=== PATIENT | male | born 1945 | race Caucasian/White ===

== ENCOUNTER 2017-12-30 15:23 | Emergency (ER) | payer OTHER ==
[2017-12-30] MEDS ORDERED: SOD CHLORIDE 0.9% 1,000 ML IV (17:00)
[2017-12-30] MEDS ORDERED: ONDANSETRON 4 MG INJ IV (17:00)
[2017-12-30] MEDS ORDERED: morphine 2 MG INJ IV (17:00)
[2017-12-30 17:12] LABS: ADD MAN DIFF? NO
[2017-12-30 17:14] LABS: BASOPHILS % 0.3 % (0.0-2.0); EOSINOPHILS % 0.5 % (0.0-7.0); HEMATOCRIT 43.7 % (42.0-52.0); HEMOGLOBIN 14.6 g/dl (14.0-18.0); LYMPHOCYTES # 1.5 10^3/ul (0.8-2.9); LYMPHOCYTES % 23.2 % (15.0-51.0); MEAN CORPUSCULAR HEMOGLOBIN 28.3 pg (29.0-33.0); MEAN CORPUSCULAR HGB CONC 33.4 g/dl (32.0-37.0); MEAN CORPUSCULAR VOLUME 84.7 fl (82.0-101.0); MEAN PLATELET VOLUME 10.6 fl (7.4-10.4); MONOCYTE # 0.3 10^3/ul (0.3-0.9); MONOCYTES % 4.4 % (0.0-11.0); NEUTROPHIL # 4.5 10^3/ul (1.6-7.5); NEUTROPHILS % 71.3 % (39.0-77.0); PLATELET COUNT 283 10^3/UL (140-415); RED BLOOD COUNT 5.16 10^6/ul (4.70-6.10); RED CELL DISTRIBUTION WIDTH 14.2 % (11.5-14.5)
[2017-12-30 17:14] LABS: WHITE BLOOD COUNT 6.3 10^3/ul (4.8-10.8)
[2017-12-30 17:33] LABS: ANION GAP 16 (8-16); BLOOD UREA NITROGEN 10 mg/dl (7-20); CALCIUM 9.2 mg/dl (8.4-10.2); CARBON DIOXIDE 24 mmol/L (21-31); CHLORIDE 103 mmol/L (97-110); GLUCOSE 172 mg/dl (70-220); POTASSIUM 3.9 mmol/L (3.5-5.1); SODIUM 139 mmol/L (135-144)
[2017-12-30 17:34] LABS: INR 0.87; PROTIME 11.9 Sec (11.9-14.9); PT RATIO 0.9
[2017-12-30 17:43] LABS: ADD UMIC YES; UR ASCORBIC ACID NEGATIVE (NEGATIVE); UR BILIRUBIN (Dip) NEGATIVE (NEGATIVE); UR BLOOD (Dip) NEGATIVE (NEGATIVE); UR CLARITY CLEAR (CLEAR); UR COLOR YELLOW (YELLOW); UR GLUCOSE (Dip) 2+ mg/dL (NEGATIVE); UR KETONES (Dip) 1+ mg/dL (NEGATIVE); UR LEUKOCYTE ESTERASE (Dip) NEGATIVE Leu/ul (NEGATIVE); UR NITRITE (Dip) NEGATIVE (NEGATIVE); UR RBC 0 /HPF (0-5); UR TOTAL PROTEIN (Dip) 2+ mg/dl (NEGATIVE); UR UROBILINOGEN (Dip) NEGATIVE (NEGATIVE); UR WBC 1 /HPF (0-5)
[2017-12-30 17:45] LABS: TROPONIN-I < 0.010 ng/ml (0.000-0.120)
[2017-12-30 19:46] LABS: LIPASE 110 U/L (23-300)
[2017-12-30] MEDS: FAMOTIDINE 20 MG TAB PO (19:54)
[2017-12-30 19:56] LABS: ALANINE AMINOTRANSFERASE 65 IU/L (13-69); ALBUMIN/GLOBULIN RATIO 1.42; ALKALINE PHOSPHATASE 91 IU/L (42-121); ANION GAP 14 (8-16); ASPARTATE AMINO TRANSFERASE 55 IU/L (15-46); BILIRUBIN,INDIRECT 0.3 mg/dl (0-1.1); BILIRUBIN,TOTAL 0.3 mg/dl (0.2-1.3); BLOOD UREA NITROGEN 10 mg/dl (7-20); CALCIUM 8.9 mg/dl (8.4-10.2); CARBON DIOXIDE 24 mmol/L (21-31); CHLORIDE 104 mmol/L (97-110); CREATININE 0.51 mg/dl (0.61-1.24); GLUCOSE 204 mg/dl (70-220); POTASSIUM 3.9 mmol/L (3.5-5.1); SODIUM 138 mmol/L (135-144); TOTAL PROTEIN 6.8 g/dl (6.1-8.1)
== END 2017-12-30 21:55 | disposition home or self-care (01) ==
LOC: E/R 15:23
DX: R42 Dizziness and giddiness (principal); J45.909 Unspecified asthma, uncomplicated; I10 Essential (primary) hypertension; E11.9 Type 2 diabetes mellitus without complications; R55 Syncope and collapse; Z79.4 Long term (current) use of insulin; Z79.82 Long term (current) use of aspirin
CPT/HCPCS: 36415; 70450; 71045; 74176; 80048; 80053; 81001; 82962; 83690; 84484; 85025; 85610; 93005; 99285-25

== ENCOUNTER 2018-03-15 08:21 | Day surgery (SDC) | payer OTHER ==
[2018-03-15] MEDS ORDERED: PROPOFOL 20 ML (09:49)
[2018-03-15] MEDS ORDERED: MIDAZOLAM 1 MG/ML 2 ML INJ (09:49)
[2018-03-15] MEDS ORDERED: LIDOCAINE 2% (SDV) 5 ML INJ (09:49)
[2018-03-15] MEDS ORDERED: FENTAnyl 50 MCG/ML VIAL (09:49)
== END 2018-03-15 11:18 | disposition home or self-care (01) ==
LOC: GIL 08:21
DX: R19.4 Change in bowel habit (principal); K29.30 Chronic superficial gastritis without bleeding; D12.6 Benign neoplasm of colon, unspecified; K21.9 Gastro-esophageal reflux disease without esophagitis; I10 Essential (primary) hypertension; E11.9 Type 2 diabetes mellitus without complications; J45.909 Unspecified asthma, uncomplicated
CPT/HCPCS: 43239; 82962; 88305; 88312

== ENCOUNTER 2018-05-21 11:22 | Inpatient (IN) | payer OTHER ==
[2018-05-21 12:39] LABS: ADD MAN DIFF? NO
[2018-05-21 12:49] LABS: URINE BLOOD (Dip) POC Negative (NEGATIVE); URINE GLUCOSE (Dip) POC >=1.0% (NEGATIVE); URINE KETONES (Dip) POC 1+ (NEGATIVE); URINE LEUKOCYTE EST (Dip) POC Negative (NEGATIVE); URINE NITRITE (Dip) POC Negative (NEGATIVE); URINE TOTAL PROTEIN POC 1+ (NEGATIVE)
[2018-05-21 12:51] LABS: BASOPHILS % 0.4 % (0.0-2.0); EOSINOPHILS % 0.5 % (0.0-7.0); HEMATOCRIT 45.2 % (42.0-52.0); HEMOGLOBIN 14.9 g/dl (14.0-18.0); LYMPHOCYTES # 0.8 10^3/ul (0.8-2.9); LYMPHOCYTES % 11.3 % (15.0-51.0); MEAN CORPUSCULAR HEMOGLOBIN 28.2 pg (29.0-33.0); MEAN CORPUSCULAR VOLUME 85.4 fl (82.0-101.0); MEAN PLATELET VOLUME 10.9 fl (7.4-10.4); MONOCYTE # 0.5 10^3/ul (0.3-0.9); MONOCYTES % 6.5 % (0.0-11.0); PLATELET COUNT 223 10^3/UL (140-415); RED BLOOD COUNT 5.29 10^6/ul (4.70-6.10); RED CELL DISTRIBUTION WIDTH 13.8 % (11.5-14.5)
[2018-05-21 12:51] LABS: WHITE BLOOD COUNT 7.4 10^3/ul (4.8-10.8)
[2018-05-21] MEDS: ACETAMINOPHEN 325 MG TAB PO (12:54)
[2018-05-21] MEDS: SODIUM CHLORIDE 0.9% 1L BAG IV* ×2 (12:55→13:59)
[2018-05-21 13:12] LABS: INR 0.96; PARTIAL THROMBOPLASTIN TIME 33.7 Sec (23.0-35.0); PROTIME 12.9 Sec (11.9-14.9)
[2018-05-21 13:15] LABS: ALANINE AMINOTRANSFERASE 47 IU/L (13-69); ALBUMIN/GLOBULIN RATIO 1.37; ALKALINE PHOSPHATASE 106 IU/L (42-121); ANION GAP 17 (5-13); ASPARTATE AMINO TRANSFERASE 46 IU/L (15-46); BILIRUBIN,INDIRECT 0.5 mg/dl (0-1.1); BILIRUBIN,TOTAL 0.5 mg/dl (0.2-1.3); BLOOD UREA NITROGEN 9 mg/dl (7-20); CALCIUM 8.5 mg/dl (8.4-10.2); CARBON DIOXIDE 19 mmol/L (21-31); CHLORIDE 104 mmol/L (97-110); CREATININE 0.51 mg/dl (0.61-1.24); Estimated GFR > 60 mL/min (>60); GLUCOSE 238 mg/dl (70-220); POTASSIUM 3.8 mmol/L (3.5-5.1); SODIUM 140 mmol/L (135-144); TOTAL PROTEIN 6.9 g/dl (6.1-8.1)
[2018-05-21 13:26] LABS: B-TYPE NATRIURETIC PEPTIDE 27 PG/ML (0-125); TROPONIN-I < 0.012 ng/ml (0.000-0.120)
[2018-05-21 13:34] LABS: OCCULT BLOOD STOOL NEGATIVE (NEGATIVE)
[2018-05-21] MEDS: PIPER-TAZO 3.375 GM IV (PMX) 100 ML IVPB ×2 (13:56→22:05)
[2018-05-21] MEDS: SOD CHLORIDE 0.9% 100 ML (14:53)
[2018-05-21] MEDS: IOHEXOL 100 ML (14:53)
[2018-05-21 14:55] LABS: C-REACTIVE PROTEIN 7.5 mg/dl (0.0-0.9)
[2018-05-21] MEDS ORDERED: ALBUTEROL 0.083% (NEB) 2.5 MG/3 ML AMP HHN (15:00)
[2018-05-21] MEDS ORDERED: ACETAMINOPHEN 325 MG TAB PO (15:00)
[2018-05-21] MEDS ORDERED: HYDROCODONE/APAP (5/325) TAB PO (15:00)
[2018-05-21] MEDS ORDERED: ONDANSETRON 4 MG INJ IV (15:00)
[2018-05-21] MEDS ORDERED: VANCOMYCIN IV PER PHARMACY XX (15:00)
[2018-05-21] MEDS ORDERED: NACL 0.9% 3 ML SYG IV (15:00)
[2018-05-21] MEDS ORDERED: hydrALAzine 20 MG INJ IV (15:30)
[2018-05-21 15:45] LABS: FREE T4 (FREE THYROXINE) 0.99 ng/dl (0.78-2.44)
[2018-05-21 15:51] LABS: ACETONE NEGATIVE (NEGATIVE)
[2018-05-21 15:53] LABS: ERYTHROCYTE SEDIMENTATION RATE 6 mm/Hr (0-20)
[2018-05-21 16:12] LABS: PROSTATE SPECIFIC ANTIGEN 0.6 ng/ml (0.0-4.0)
[2018-05-21] MEDS ORDERED: GLUCOSE GEL 15 GRAM TUBE BUCCAL (16:30)
[2018-05-21] MEDS ORDERED: DEXTROSE 50% 50 ML SYRINGE IV ×2 (16:30)
[2018-05-21] MEDS ORDERED: GLUCAGON 1 MG INJ IM (16:30)
[2018-05-21] MEDS ORDERED: GLUCOSE GEL 15 GRAM TUBE PO ×2 (16:30)
[2018-05-21] MEDS: PANTOPRAZOLE 40 MG INJ IV (18:02)
[2018-05-21] MEDS: VANCOMYCIN 2 GM in SOD CHLORIDE 0.9% 500 ML IVPB (18:03)
[2018-05-21 18:08] LABS: LACTIC ACID 2.4 mmol/L (0.5-2.0)
[2018-05-21] MEDS: INSULIN ASPART [NOVOLOG] 3 ML PEN SC ×3 (18:18→21:59)
[2018-05-21] MEDS: GABAPENTIN 300 MG CAP PO (21:50)
[2018-05-21] MEDS: ATORVASTATIN 20 MG TAB PO (21:50)
[2018-05-21] MEDS: INSULIN GLARGINE [LANTus] (100 UNITS/ML) SYG SC (22:00)
[2018-05-21] MEDS: SOD CHLORIDE 0.9% 1,000 ML IV (22:05)
[2018-05-22] MEDS: PIPER-TAZO 3.375 GM IV (PMX) 100 ML IVPB ×4 (00:32→17:52)
[2018-05-22] MEDS: SOD CHLORIDE 0.9% 1,000 ML IV ×3 (00:34→20:20)
[2018-05-22] MEDS: PANTOPRAZOLE 40 MG INJ IV ×2 (05:42→17:52)
[2018-05-22] MEDS: LEVOTHYROXINE 100 MCG TAB PO (06:22)
[2018-05-22 06:39] LABS: WHITE BLOOD COUNT 5.4 10^3/ul (4.8-10.8)
[2018-05-22 06:39] LABS: HEMATOCRIT 40.7 % (42.0-52.0); HEMOGLOBIN 13.1 g/dl (14.0-18.0); MEAN CORPUSCULAR HEMOGLOBIN 27.9 pg (29.0-33.0); MEAN CORPUSCULAR HGB CONC 32.2 g/dl (32.0-37.0); MEAN CORPUSCULAR VOLUME 86.6 fl (82.0-101.0); PLATELET COUNT 200 10^3/UL (140-415); POSITIVE DIFF @See below; RED CELL DISTRIBUTION WIDTH 13.9 % (11.5-14.5)
[2018-05-22 06:43] LABS: ADD MAN DIFF? YES
[2018-05-22 06:58] LABS: MAGNESIUM 1.6 mg/dl (1.7-2.5)
[2018-05-22 06:58] LABS: LACTIC ACID 1.2 mmol/L (0.5-2.0)
[2018-05-22 07:33] LABS: CHOLESTEROL 70 mg/dl (100-200)
[2018-05-22 07:33] LABS: HDL CHOLESTEROL 23 mg/dl (31-75); LDL CHOLESTEROL,CALCULATED 26 mg/dl; TRIGLYCERIDES 104 mg/dl (0-149)
[2018-05-22 07:44] LABS: ALANINE AMINOTRANSFERASE 44 IU/L (13-69); ALBUMIN 3.2 g/dl (3.3-4.9); ALBUMIN/GLOBULIN RATIO 1.28; ALKALINE PHOSPHATASE 70 IU/L (42-121); ANION GAP 10 (5-13); ASPARTATE AMINO TRANSFERASE 26 IU/L (15-46); BILIRUBIN,INDIRECT 0.6 mg/dl (0-1.1); BILIRUBIN,TOTAL 0.6 mg/dl (0.2-1.3); BLOOD UREA NITROGEN 8 mg/dl (7-20); CALCIUM 7.9 mg/dl (8.4-10.2); CARBON DIOXIDE 23 mmol/L (21-31); CHLORIDE 107 mmol/L (97-110); CREATININE 0.68 mg/dl (0.61-1.24); Estimated GFR > 60 mL/min (>60); GLUCOSE 156 mg/dl (70-220); POTASSIUM 3.2 mmol/L (3.5-5.1); SODIUM 140 mmol/L (135-144); TOTAL PROTEIN 5.7 g/dl (6.1-8.1)
[2018-05-22] MEDS: GABAPENTIN 300 MG CAP PO ×3 (08:24→20:21)
[2018-05-22] MEDS: FLUTICASONE 0.05% 16 GM NAS SPRAY NASAL (08:24)
[2018-05-22 08:29] LABS: ANISOCYTOSIS 2+ (0-0); BAND NEUTROPHILS #M 1.7 10^3/ul (0.0-0.6); BAND NEUTROPHILS % (M) 33 % (0-4); BASOPHILS % (M) 1 % (0-2); BURR CELLS 1+ (0-0); EOSINOPHILS % (M) 1 % (0-7); LYMPHOCYTES #M 0.5 10^3/ul (0.8-2.9); LYMPHOCYTES % (M) 11 % (15-51); MICROCYTOSIS 2+ (0-0); MONOCYTE #M 0.3 10^3/ul (0.3-0.9); MONOCYTES % (M) 6 % (0-11); PLATELET ESTIMATE NORMAL; POIKILOCYTOSIS 2+ (0-0); POLYCHROMASIA 1+ (0-0); REACTIVE LYMPHOCYTES #M 0.2 10^3/ul (0.0-0.0); REACTIVE LYMPHOCYTES% (M) 5 % (0-0); SEG NEUT #M 2.4 10^3/ul (1.6-7.5); SEGMENTED NEUTROPHILS (M) % 43 % (39-77); TARGET CELLS 1+ (0-0)
[2018-05-22] MEDS: ENOXAPARIN 40 MG/0.4 ML SYG SC (08:39)
[2018-05-22] MEDS: INSULIN ASPART [NOVOLOG] 3 ML PEN SC ×7 (08:39→20:22)
[2018-05-22] MEDS: VANCOMYCIN 1.25 GM in SOD CHLORIDE 0.9% 250 ML IVPB (09:36)
[2018-05-22] MEDS: ASPIRIN (EC) 81 MG TAB PO (09:37)
[2018-05-22] MEDS: MAGNESIUM SULFATE 2 GM/50 ML 50 ML IVPB (12:13)
[2018-05-22] MEDS: POTASSIUM CHLORIDE (SR) 20 MEQ TAB PO (12:13)
[2018-05-22] MEDS: VANCOMYCIN 1 GM 250 ML IVPB (20:20)
[2018-05-22] MEDS: ATORVASTATIN 20 MG TAB PO (20:20)
[2018-05-22] MEDS: INSULIN GLARGINE [LANTus] (100 UNITS/ML) SYG SC (21:48)
[2018-05-23] MEDS: ZOLPIDEM 5 MG TAB PO (00:11)
[2018-05-23] MEDS: PIPER-TAZO 3.375 GM IV (PMX) 100 ML IVPB ×3 (00:11→12:41)
[2018-05-23] MEDS: SOD CHLORIDE 0.9% 1,000 ML IV ×2 (05:17→10:33)
[2018-05-23] MEDS: LEVOTHYROXINE 100 MCG TAB PO (06:45)
[2018-05-23] MEDS: PANTOPRAZOLE 40 MG INJ IV (06:45)
[2018-05-23 07:20] LABS: ADD MAN DIFF? NO
[2018-05-23 07:27] LABS: BASOPHILS % 0.3 % (0.0-2.0); EOSINOPHILS # 0.1 10^3/ul (0.0-0.5); EOSINOPHILS % 1.8 % (0.0-7.0); HEMATOCRIT 38.6 % (42.0-52.0); HEMOGLOBIN 12.8 g/dl (14.0-18.0); LYMPHOCYTES # 1.3 10^3/ul (0.8-2.9); LYMPHOCYTES % 21.6 % (15.0-51.0); MEAN CORPUSCULAR HEMOGLOBIN 28.7 pg (29.0-33.0); MEAN CORPUSCULAR HGB CONC 33.2 g/dl (32.0-37.0); MEAN CORPUSCULAR VOLUME 86.5 fl (82.0-101.0); MEAN PLATELET VOLUME 11.1 fl (7.4-10.4); MONOCYTE # 0.5 10^3/ul (0.3-0.9); MONOCYTES % 8.3 % (0.0-11.0); NEUTROPHIL # 4.1 10^3/ul (1.6-7.5); NEUTROPHILS % 67.3 % (39.0-77.0); PLATELET COUNT 197 10^3/UL (140-415); RED BLOOD COUNT 4.46 10^6/ul (4.70-6.10); RED CELL DISTRIBUTION WIDTH 14.3 % (11.5-14.5)
[2018-05-23 07:46] LABS: ALANINE AMINOTRANSFERASE 34 IU/L (13-69); ALBUMIN 3.3 g/dl (3.3-4.9); ALBUMIN/GLOBULIN RATIO 1.32; ALKALINE PHOSPHATASE 77 IU/L (42-121); ANION GAP 9 (5-13); ASPARTATE AMINO TRANSFERASE 21 IU/L (15-46); BILIRUBIN,INDIRECT 0.4 mg/dl (0-1.1); BILIRUBIN,TOTAL 0.4 mg/dl (0.2-1.3); BLOOD UREA NITROGEN 8 mg/dl (7-20); CALCIUM 8.2 mg/dl (8.4-10.2); CARBON DIOXIDE 22 mmol/L (21-31); CHLORIDE 109 mmol/L (97-110); CREATININE 0.63 mg/dl (0.61-1.24); Estimated GFR > 60 mL/min (>60); GLUCOSE 157 mg/dl (70-220); POTASSIUM 3.6 mmol/L (3.5-5.1); SODIUM 140 mmol/L (135-144); TOTAL PROTEIN 5.8 g/dl (6.1-8.1)
[2018-05-23 08:01] LABS: PHOSPHORUS 3.3 mg/dl (2.5-4.9)
[2018-05-23 08:01] LABS: MAGNESIUM 1.9 mg/dl (1.7-2.5)
[2018-05-23] MEDS: INSULIN ASPART [NOVOLOG] 3 ML PEN SC ×6 (08:38→17:37)
[2018-05-23 08:39] LABS: VANCOMYCIN,TROUGH 6.2 ug/ml (10.0-20.0)
[2018-05-23] MEDS: ENOXAPARIN 40 MG/0.4 ML SYG SC (08:39)
[2018-05-23] MEDS: ASPIRIN (EC) 81 MG TAB PO (08:40)
[2018-05-23] MEDS: GABAPENTIN 300 MG CAP PO ×2 (08:40→12:44)
[2018-05-23] MEDS: FLUTICASONE 0.05% 16 GM NAS SPRAY NASAL (08:40)
[2018-05-23] MEDS: VANCOMYCIN 1 GM 250 ML IVPB (08:41)
[2018-05-23] MEDS ORDERED: VANCOMYCIN 1.5 GM in SOD CHLORIDE 0.9% 250 ML IVPB (18:00)
[2018-05-23 18:42] LABS: EBV NUCLEAR AG (EBNA) AB (IGG) <18.00 U/mL; EBV VIRAL CAPSID AG AB (IGM) <36.00 U/mL
[2018-05-26 14:41] LABS: WEST NILE VIRUS ANTIBODY (IGG) <1.30 index; WEST NILE VIRUS ANTIBODY (IGM) <0.90 index
== END 2018-05-23 18:15 | disposition home health service (06) | DRG 871 ==
LOC: E/R 11:22 → PP2 05-22 15:58 → TEL 13:56
PROVIDERS: Internal Medicine
DX: A41.9 Sepsis, unspecified organism (principal); J96.00 Acute respiratory failure, unspecified whether with hypoxia or hypercapnia; E87.2 Acidosis; N39.0 Urinary tract infection, site not specified; E11.40 Type 2 diabetes mellitus with diabetic neuropathy, unspecified; J45.909 Unspecified asthma, uncomplicated; I10 Essential (primary) hypertension; E03.9 Hypothyroidism, unspecified; E78.5 Hyperlipidemia, unspecified; K21.9 Gastro-esophageal reflux disease without esophagitis; E66.9 Obesity, unspecified; Z68.38 Body mass index [BMI] 38.0-38.9, adult; M47.9 Spondylosis, unspecified; A08.4 Viral intestinal infection, unspecified; R65.20 Severe sepsis without septic shock; Z79.4 Long term (current) use of insulin; Z79.84 Long term (current) use of oral hypoglycemic drugs; Z79.82 Long term (current) use of aspirin; Z87.891 Personal history of nicotine dependence; Z87.11 Personal history of peptic ulcer disease; Z90.49 Acquired absence of other specified parts of digestive tract
CPT/HCPCS: 36415; 71045; 71275; 74176; 80053; 80061; 80202; 81003; 82010; 82270; 82962; 83036; 83605; 83735; 83880; 84100; 84153; 84154; 84439; 84443; 84484; 85025; 85610; 85651; 85730; 86140; 86664; 86674; 86788; 86789; 87040; 87045; 87075; 87086; 87177; 87400; 93005; 96374; 97161; 99291-25